=== PATIENT | female | born 1980 | race Caucasian/White ===

== ENCOUNTER 2020-06-21 10:30 | Inpatient (IN) | payer OTHER ==
--- OUTSIDE RECORDS SUMMARY | 2020-06-21 10:34 | XMS REPORT | Continuity of Care Document ---
:1980 Author Organization [facility] t Address [address] [place] [id number] Care Team Providers Name Role Phone Mujeeb Attending Clinician Mucorneliuseb Admitting Clinician Problems Condition Condition Condition Status Onset Resolution Last Treating Co mments Source Name Details Category Date Date Treatment Clinician Date HEROIN OD Diagnosis Active 2018-032019-01-01 Memoria 0-22 18:57:00 l HEROIN 00:00: [place] OD 00 Active 9 [place] HEROIN Diagnosis Active 2018-032019-01-17 Mem oria OVERDOSE, 0-22 21:47:00 l FALLS, HEROIN 00:00: [place] RIGHT HIP OVERDOSE, 00 PAINS FALLS, RIGHT HIP PAINS Active 01/01/2019 [place] UNSPECIFIE Diagnosis Active 2019-01-17 Memoria D FALL, 21:47:00 l INITIAL [place] ENCOUNTER UNSPECIFIE D FALL, INITIAL ENCOUNTER Active [place] PAIN IN Diagnosis Active 2019-01-17 Me moria RIGHT HIP 21:47:00 l PAIN IN Kashif RIGHT HIP Active [facility] Illness, Problem 2019-01-07 Mem oria unspecifie 21:32:54 l d Illness, Priyank n unspecifie d 01/07/2019 [place] Simple Problem Active 2019-01-07 Memor ia obesity 21:32:54 l (disorder) Simple Herm vesna obesity (disorder) Active Problem 01/07/2019 [place] ILLNESS, Diagnosis Active 2019-01-01 M emoria UNSPECIFIE 18:57:00 l D ILLNESS, Priyank n UNSPECIFIE D Active [facility] POISONING Diagnosis Active 2019-01-17 Memoria BY HEROIN, 21:47:00 l ACCIDENTAL Priyank n (UNINTEN POISONING BY HEROIN, ACCIDENTAL (UNINTEN Active [facility] Allergies, Adverse Reactions, Alerts This patient has no known allergies or adverse reactions. Social History Social Habit Start Date Stop Date Quantity Comments Source Social History 2019-01-02 2019-01-02 [facility] Marcie funes 05:20:48 05:20:48 Medications Ordered Filled Start Stop Current Ordering Indication Dosage Frequency Signature Comments Components Source Medication Medication Date Date Medication? Clinician (SIG) Name Name gabapentin 2018-03 Yes 300 mg = 1 M emoria 300 MG Oral 0-26 cap, PO, l Capsule 15:36: Bedtime, # Herm vesna 00 7 cap, 0 Refill(s), Pharmacy: [id number] magnesium 2018-03 Yes 400 mg = 1 Me moria oxide 400 0-26 tab, PO, l mg oral 15:36: BID, X 7 Priyank n tablet 00 day, # 14 tab, 0 Refill(s), Pharmacy: [facility] #[id number] Calcium 2018-03 Yes 1,000 mg = Yadiel lui Carbonate 0-26 2 tab, PO, l 500 MG 15:36: TID, # 42 Priyank n Chewable 00 tab, 0 Tablet Refill(s), Pharmacy: [facility] #[id number] potassium 2018-03 Yes 1 pkt, PO, Me moria phosphate-s 0-26 Daily, # 7 l odium 15:36: pkt, 0 [place] phosphate 00 Refill(s), 250 mg-280 Pharmacy: mg-160 mg [facility] oral powder #6767 for reconstitut ion cefdinir 2018-03 Yes 300 mg = 1 Mem oria 300 MG Oral 0-26 cap, PO, l Capsule 15:36: Q12H, X 4 Deanna nn [Omnicef] 00 day, # 8 cap, 0 Refill(s), Pharmacy: [facility] #[id number] gabapentin 2018-03 No Notes: Memor ia 0-26 (Same as: l 02:00: Neurontin) [place] 00 potassium 2018-03 No Notes: Memori a phosphate-s 0-25 (Same as: l odium 14:00: Phos-NaK) Kashif phosphate 00 Each 1.5 250 mg-280 gm pkt has mg-160 mg 250mg oral powder phosphorou for s. Mix reconstitut w/2.5oz ion water and stir. Magnesium 2018- No Notes: Memori a Oxide 0-24 (Same as: l 22:00: Mag-Ox Kashif 00 400) Magnesium oxide 232dm=878n g elemental magnesium Dose=____m g magnesium oxide (___mg elemental magnesium) Magnesium 2018-03 No 400 mg, Memor ia Oxide 0-24 Route: PO, l 18:00: Drug form: [place] TAB, TID, Dosing Weight 78.1, kg, Start date: 01/03/19 13:00:00 CDT, Duration: 30 day, Stop date: 02/02/19 9:00:00 [employer] Monobasic 2018-03 No 1 tab, Memori a potassium 024 Route: PO, l phosphate 18:00: Dosing Priyank n 155 MG / 00 Weight Sodium 78.1, kg, Phosphate, TID, Start Monobasic date: 350 MG Oral 01/03/19 Tablet 13:00:00 CDT, Duration: 30 day, Stop date: 02/02/19 9:00:00 [employer] Tums 2018-03 No Notes: Memoria 0-24 (Same As: l 18:00: Tums) Calcium Carbonate 500 mg = 200 mg elemental calcium Dose = mg calcium carbonate ( mg elemental calcium) Tramadol 2018-03 No Notes: Not Mem oria 0-24 to exceed l 02:44: 400mg/day. Kashif 00 (Same As: Ultram) cefepime 2018-03 No Notes: Memoria 0-23 (Same As: l 21:00: Maxipime) MEDICATION WASTE Product Size: 1000 mg Product Wasted: ___ mg Vancomycin 2019 No 1 ea, Memori a 0-23 Route: l 21:00: MISC, Kashif 00 ONCALL, Dosing Weight 78.1, kg, Start date: 01/02/19 16:00:00 CDT, Duration: 7 day, Stop date: 01/09/19 15:59:00 CDT, Pharmacy to dose, ABX Indication : Skin/Soft Tissue Infection Rocephin + 2018-03 No Notes: Memor ia sterile 0-23 (Same As: l water 10 mL 21:00: Rocephin). Use with 100 mL NS and infuse over 30 min MEDICATION WASTE Product Size: 1000 mg Product Wasted: ___ mg vancomycin 2018-03 No 2001 mg: Me moria 0-23 infuse l 21:00: over 2.5 Kashif 00 hours BD Normal 2018-03 No Notes: Memori a Saline 0-23 Same as: l Flush 20:41: BD [place] 00 Posiflush Sterile Sodium 2018-03 No 250 mL, Memoria Chloride 0-23 Route: l 0.9% IV 20:41: IVPB, Start date: 01/02/19 15:41:00 CDT, Duration: 30 day, Stop date: 02/01/19 14:40:00 [employer], PRN Line Flush, 0 Ondansetron 2018-03 No Notes: Yadiel lui 0-23 (Same as: l 20:38: Zofran) MEDICATION WASTE Product Size: 4 mg Product Wasted: ___ mg Bisacodyl 2018-03 No Notes: Memori a 0-23 (Same As: l 20:38: Dulcolax, Kashif 00 Bisco-Lax) Tylenol 2018-03 No Notes: Do Memor ia 0-23 not exceed l 17:00: 4 gm/day. [place] 00 (Same as: Tylenol) Omnipaque 2018-03 No Notes: Memori a 300 0-23 (Same l injectable 16:35: as:Omnipaq H ermann solution ue 300). WASTE: F/P - Black; E - Municipal Trash Bin Lexapro 2018-03 No Notes: Memoria 0-23 (Same as: l 14:00: Lexapro) [place] Lasix 2018-03 No Notes: Memoria 0-23 (Same as: l 13:49: Lasix) NS 1,000 mL 2018-03 No 1,000 mL, M emoria 0-23 Rate: 150 l 06:08: ml/hr, Infuse over: 6.7 hr, Route: IV, Dosing Weight 78.1 kg, Total Volume: 1,000, Start date: 01/02/19 1:08:00 CDT, Duration: 30 day, Stop date: 02/01/19 2:07:00 [employer], 1.86, m2, 0 Tylenol 2018-03 No Notes: Max Yadiel lui 0-23 acetaminop l 05:00: hen 4000 [place] 00 mg/day (4 gm/day). (Same as: Tylenol Extra Strength) gabapentin 2018-03 No Notes: Memor ia 0-23 (Same as: l 04:42: Neurontin) Kashif 00 Enoxaparin 2018-03 No Notes: Memor ia 0-23 (Same as: l 03:00: Lovenox) [place] Saline 2018-03 No Notes: Memoria Flush 0.9% 0-23 Same as: l 02:00: BD [place] Posiflush Sterile BD Normal 2018-03 No Notes: Memori a Saline 0-23 Same as: l Flush 01:58: BD Kashif 00 Posiflush Sterile Sodium 2018-03 No 250 mL, Memoria Chloride 0-23 Route: l 0.9% IV 01:58: IVPB, Kashif 00 Start date: 01/01/19 20:58:00 CDT, Duration: 30 day, Stop date: 01/31/19 19:57:00 [employer], PRN Line Flush, 0 Escitalopra 2018-03 Yes 5 mg = 1 Me moria m 5 MG Oral 0-23 tab, PO, l Tablet 01:29: BID, # 30 Priyank n [Lexapro] 00 tab, 0 Refill(s) tramadol 2018-03 No 50 mg = 1 Yadiel lui hydrochlori 0-23 tab, PO, l de 50 MG 01:29: Q6H, PRN Deanna nn Oral Tablet 00 Pain, # 40 tab, 0 Refill(s) Alprazolam 2018-03 No 0.5 mg = 1 M emoria 0.5 MG Oral 0-23 tab, PO, l Tablet 01:29: Q8H, PRN Kashif [Xanax] 00 Anxiety, # 30 tab, 0 Refill(s) Acetaminoph 2018-03 No Notes: Do M emoria en 0-23 not exceed l 00:40: 4 gm/day. [place] 00 (Same as: Tylenol) Saline 2018-03 No Notes: Memoria Flush 0.9% 0-23 Same as: l 00:40: BD [place] 00 Posiflush Sterile Potassium 2018-03 No Notes: Memori a Chloride 0-23 (Same as: l 00:40: KCL) [place] 00 Infuse no faster than 10 mEq/hr if given peripheral ly. sodium 2018-03 No Notes: Memoria phosphate 0-23 Infuse l 00:40: over 4 [place] 00 hour. Do not infuse phosphorou s concurrent ly in the same line as TPN or IVF that contains calcium. For double lumen central lines, phosphorou s may be infused in a separate lumen from TPN. potassium 2018-03 No Notes: Memori a phosphate 0-23 (Same as: l 00:40: K Kashif 00 Phosphate. ) Do not infuse phosphorou s concurrent ly in the same line as TPN or IVF that contains calcium. For double lumen central lines, phosphorou s may be infused in a separate lumen from TPN. 1 mMol phoshate has 1.47 mEq potassium Infuse over 4 hours potassium 2018-03 No Notes: Memori a phosphate-s 0-23 (Same as: l odium 00:40: Phos-NaK) Kashif phosphate 00 Each 1.5 250 mg-280 gm pkt has mg-160 mg 250mg oral powder phosphorou for s. Mix reconstitut w/2.5oz ion water and stir. Magnesium 2018-03 No Notes: Memori a Sulfate 0-23 WASTE: F/P l 00:40: - Sink; E Kashif 00 - Municipal Trash Bin Magnesium 2018-03 No Notes: Memori a Oxide 0-23 (Same as: l 00:40: Mag-Ox [place] 00 400) Magnesium oxide 164wh=132o g elemental magnesium Dose=____m g magnesium oxide (___mg elemental magnesium) Calcium 2018-03 No Notes: Memoria Gluconate 0-23 WASTE: F/P l 00:40: - Sink; E [place] 00 - Municipal Trash Bin Calcium 2018-03 No Notes: Memoria Carbonate 0-23 (Same As: l 500 MG 00:40: Tums) [place] Chewable 00 Calcium Tablet Carbonate 500 mg = 200 mg elemental calcium Dose = mg calcium carbonate ( mg elemental calcium) Vital Signs Vital Name Observation Time Observation Value Comments Source Temperature Oral (F) 2019-01-05 13:10:00 98.2 F [facility] [place] Heart Rate 2019-01-05 13:10:00 [facility] [place] Respitory Rate 2019-01-05 13:10:00 Memori al [place] Systolic (mm Hg) 2019-01-05 13:10:00 Yadiel rial [place] Diastolic (mm Hg) 2019-01-05 13:10:00 Mem orial Kashif Temperature Oral (F) 2019-01-05 09:00:00 98.5 F [facility] Heart Rate 2019-01-05 09:00:00 [facility] Respitory Rate 2019-01-05 09:00:00 Memori al [place] Systolic (mm Hg) 2019-01-05 09:00:00 Yadiel rial Kash[place] Diastolic (mm Hg) 2019-01-05 09:00:00 Mem orial [place] Temperature Oral (F) 2019-01-05 01:21:00 98.7 F [facility] Heart Rate 2019-01-05 01:21:00 [facility] [place] Respitory Rate 2019-01-05 01:21:00 Memori al [place] Systolic (mm Hg) 2019-01-05 01:21:00 Yadiel rial [place] Diastolic (mm Hg) 2019-01-05 01:21:00 Mem orial [place] Height 2019-01-02 10:00:00 154.94 cm [facility] Height 2019-01-02 01:44:00 154.94 cm [facility] Weight 2019-01-02 01:44:00 [facility] BMI Calculated 2019-01-02 01:44:00 Memori al Kash[place] Procedures This patient has no known procedures. Encounters Start End Encounter Admission Attending Care Care Encounter Source Date/Time Date/Time Type Type Clinicians Facility Department ID 2019-01-01 Inpatient [facility] [id number] 18:57:00 2019-01-01 2019-01-05 Outpatient Mujeeb, [facility] [id number] 18:57:00 13:41:00 Mehrukh 95 Results Test Description Test Time Test Comments Results Result Comments Source CARDIAC ENZYMES 2019-01-05 [id number] [facility] 10:56:00 CARDIAC ENZYMES 2019-01-04 [id number] [facility] [place] 10:17:00 CHEM PANEL 2019-01-04 0.88 [facility] Deanna nn 10:17:00 ELECTROLYTES 2019-01-04 10.6 [facility] Her braga 10:17:00 ELECTROLYTES 2019-01-04 87 [facility] Her br[place] 10:17:00 ELECTROLYTES 2019-01-04 5 [facility] Her braga 10:17:00 ELECTROLYTES 2019-01-04 0.40 [facility] Her braga 10:17:00 ELECTROLYTES 2019-01-04 138 [facility] Her br[place] 10:17:00 ELECTROLYTES 2019-01-04 3.6 [facility] Her [place] 10:17:00 ELECTROLYTES 2019-01-04 106 [facility] Her br[place] 10:17:00 ELECTROLYTES 2019-01-04 25 [facility] Her braga 10:17:00 ELECTROLYTES 2019-01-04 8.7 [facility] Her braga 10:17:00 ELECTROLYTES 2019-01-04 134 [facility] Her braga 10:17:00 HEMATOLOGY 2019-01-04 58.6 [facility] Deanna nn 10:17:00 HEMATOLOGY 2019-01-04 33.7 [facility] Deanna nn 10:17:00 HEMATOLOGY 2019-01-04 6.1 [facility] Deanna nn 10:17:00 HEMATOLOGY 2019-01-04 1.3 [facility] nn 10:17:00 HEMATOLOGY 2019-01-04 0.3 [facility] Deanna nn 10:17:00 HEMATOLOGY 2019-01-04 4.7 [facility] Deanna nn 10:17:00 HEMATOLOGY 2019-01-04 2.7 [facility] nn 10:17:00 HEMATOLOGY 2019-01-04 0.5 [facility] Deanna nn 10:17:00 HEMATOLOGY 2019-01-04 0.1 [facility] [place] nn 10:17:00 HEMATOLOGY 2019-01-04 8.0 [facility] Deanna nn 10:17:00 HEMATOLOGY 2019-01-04 4.17 [facility] Deanna nn 10:17:00 HEMATOLOGY 2019-01-04 12.7 [facility]anna nn 10:17:00 HEMATOLOGY 2019-01-04 37.3 [facility] Deanna nn 10:17:00 HEMATOLOGY 2019-01-04 89.3 [facility] Deanna nn 10:17:00 HEMATOLOGY 2019-01-04 10:17:00 Test Item Value Reference Range Interpretation Comme nts MCH (test code = MCH) 30.4 pg 27.0-31.0 [facility] HusrrdhBZRDJNINQS1250-99-42 10:17:0034.0[facility] HermannHEMATOLOGY 2019-01-04 10:17:0012.8[facility] ChyoeklNBMAAJLWJT0453-72-30 10:17:61116Mskaorzh PzkzuwaWRPALIPKMF1665-21-65 10:17:008.7[facility] AqwntnlHJJSGSSPWK5907-78-61 10:17:00Negative *NA*(01/04/19 5:17 AM)[facility] BujhtetLDLVSPCCUG7352-56-68 10:17:00Negative *NA*(01/04/19 5:17 AM)[facility] CisrjarXIXDJXOESM1970-33-97 10:17:00Negative *NA*(01/04/19 5:17 AM)[facility] OacsimpDYJXEMUDTN9919-00-59 10:17:00Negative *NA*(01/04/19 5:17 AM)[facility] HermannCHEM QKESR9295-81-50 10:05:002.2[facility] LcnqkbyKJQMAXLGEO0550-66-74 10:05:009.7[facility] [place] SDSXBAKRIW9264-81-14 10:05:003.93[facility] AukiwrkPFDMFRHEGW6579-69-11 10:05:00 12.1[facility] EvuerbqFJHFLKMGWV9000-93-85 10:05:0035.4[facility] HermannHEMATOLOGY 2019-01-03 10:05:0090.2[facility] TygsaxkVUJUCSCGYV9981-47-31 10:05:00 Test Item Value Reference Range Interpretation Comments MCH (test code = MCH) 30.9 pg 27.0-31.0 [facility] WwkodqtWYFPZNXFRD9311-89-42 10:05:0034.2[facility] HermannHEMATOLOGY 2019-01-03 10:05:0013.3[facility] PlrubreOQVSVONLJQ2995-75-72 10:05:97980Pnmashaf HxqpimnTFANHZRQJK3978-98-59 10:05:008.3[facility] ZtahgygGLAMVPGBHK5531-57-02 10:05:0068.5[facility] JyhfcmtKDVICHYCMK1931-56-29 10:05:0025.0[facility] [place] SJLSCFBEEP5019-97-57 10:05:005.6[facility] XxdrivxCVHTXSMDQN3075-89-02 10:05:000.6 [facility] FaziryhCZEHDPVDDB8236-78-88 10:05:000.3[facility] HermannHEMATOLOGY 2019-01-03 10:05:006.7[facility] CprbnmtINLAGCMUDV5904-39-94 10:05:002.4[facility] SeggmorFIDZHGFSNK8868-01-70 10:05:000.5[facility] FtrzuaiYCNMWRLSUG8199-43-25 10:05:000.1[facility] HermannPARATHYROID DWKOUDU7840-59-56 10:05:001.00[facility] HermannPARATHYROID IGBNQKD8651-30-94 10:05:001.04[facility] HermannCARDIAC ENZYMES 2019-01-03 10:05:645434Gnnwbvnr HermannCHEM JUCMH2318-24-60 10:05:001.7[facility] HermannCHEM ZLNMM8496-56-71 10:05:0092[facility] HermannCHEM ZHWHR6187-54-12 10:05:005[facility] HermannCHEM EZTUN1584-05-80 10:05:000.40[facility] HermannCHEM WQMHZ3182-40-63 10:05:56402Gfdazuei HermannCHEM DAPJJ8484-12-47 10:05:003.8 [facility] HermannCHEM VZCHH1122-36-51 10:05:68008Isdbzgsb HermannCHEM PANEL 2019-01-03 10:05:0024[facility] HermannCHEM LJUEV8230-38-80 10:05:008.0[facility] HermannCHEM IDBVO2422-03-26 10:05:005.7[facility] HermannCHEM ZDHMB6497-89-07 10:05:002.6[facility] HermannCHEM SWGTP4868-03-48 10:05:82951Hzmcsasa HermannCHEM NHKGC7271-26-44 10:05:47003Zzqaektp HermannCHEM MXHHO6121-74-39 10:05:0044 [facility] HermannCHEM FZWJK4565-90-83 10:05:000.3[facility] HermannCHEM PANEL 2019-01-03 10:05:61195Owflxgar HermannCHEM WLUCU9267-50-60 10:05:009.8[facility] HermannCHEM IEHJP0528-97-22 10:05:00 Test Item Value Reference Range Interpretation Comments B/C Ratio (test code = B/C Ratio) 12 09-04 [facility] HermannCHEM RVBUT6968-23-82 10:05:003.1[facility] HermannCHEM PANEL 2019-01-03 10:05:00 Test Item Value Reference Range Interpretation Comments A/G Ratio (test code = A/G Ratio) 0.8 1 0.7-1.6 [facility] HermannCARDIAC UHDQMPH9755-24-03 08:02:000.12[facility] HermannCHEM PANEL 2019-01-02 08:02:0098[facility] HermannCHEM GINJM6204-42-61 08:02:0015[facility] HermannCHEM HUTBS0891-74-96 08:02:000.60[facility] HermannCHEM XPFMZ0115-22-14 08:02:44062Lgvkygbv HermannCHEM KXIPA9547-10-91 08:02:004.2[facility] HermannCHEM DCNNL2611-58-59 08:02:49708Ipfviqsj HermannCHEM VGRYS3617-69-79 08:02:0026 [facility] HermannCHEM NXYCN1597-45-94 08:02:008.2[facility] HermannCHEM PANEL 2019-01-02 08:02:007.9[facility] HermannCHEM STWNJ1252-60-60 08:02:77215Dnauksqe HermannCHEM JAXZB3393-70-30 08:02:002.9[facility] HermannCHEM NFPTX2360-03-47 08:02:002.1[facility] HermannCHEM GRAZV0464-76-05 08:02:001.3[facility] WQTCYKEHGVVMQ4256-86-83 08:02:00Negative *NA*(01/02/19 3:02 AM)[facility] GVFPTLJFYH9029-34-13 08:02:0013.4[facility] BnkxkulACITVSNRMY0593-74-11 08:02:00 4.07[facility] LadbrhlKCTCMMUCHU5706-85-36 08:02:0012.2[facility] HermannHEMATOLOGY 2019-01-02 08:02:0036.5[facility] OfgdcerCNYVGXELKN8137-98-05 08:02:0089.8[facility] CpipjbxLPUZQNLFOC4044-12-69 08:02:00 Test Item Value Reference Range Interpretation Comments MCH (test code = MCH) 30.1 pg 27.0-31.0 [facility] UcvtzvpWHJLOWQEJM4724-06-40 08:02:0033.5[facility] HermannHEMATOLOGY 2019-01-02 08:02:0013.5[facility] NsawnihPMJYRWUFOP6821-20-92 08:02:10407Vhqrjppg TvwovvuBTJMPHIFSO7757-15-29 08:02:008.9[facility] IlvdlhtYXCCKMGTOL9470-46-71 08:02:0077.9[facility] FijyiyhVJPDRMNUAH7021-73-04 08:02:0016.3[facility] [place] ZODZSFGPQZ2212-20-52 08:02:005.4[facility] VlrtyjmVVZKOIVHSQ0875-25-66 08:02:000.2 [facility] BqxmrtgUIWTANKHYR3019-38-03 08:02:000.2[facility] HermannHEMATOLOGY 2019-01-02 08:02:0010.4[facility] DgftquiHCUAESNMTH0036-29-52 08:02:002.2[facility] WpvhmxaASIEVBNCMA5460-81-30 08:02:000.7[facility] ExjgvsxOKLDCWKLDP8504-78-25 08:02:000.0[facility] XlzlrepUETANXHQWB0626-51-64 08:02:000.0[facility] PARATHYROID ECWMCCD0332-78-23 08:02:001.06[facility] HermannPARATHYROID PROFILE 2019-01-02 08:02:001.03[facility] HermannBACTERIAL - IYCBGPMF1340-15-04 01:51:00 Negative (01/01/19 8:51 PM)[facility] HermannCARDIAC RWZEGJC0756-33-66 01:51:00 0.12[facility] HermannCARDIAC YTHMLKO1641-40-47 01:51:95855.9[facility] [place] CARDIAC MRDTLNK5407-95-91 01:51:00 Test Item Value Reference Range Interpretation Comments CK MB Index (test 3.1 1 See_Comment [Automate d message] The code = CK MB Index) system w [facility] generated this result transmit juliette reference range : <=2.5. The reference range was not used to interpr et this result as umm l/abnormal. [facility] ZNVHE6899-08-40 01:51:00 Test Item Value Reference Range Interpretation Comments B/C Ratio (test code = B/C Ratio) 19 1 6-25 [facility] PVTKD6714-18-04 01:51:003.4[facility] HermannCHEM PANEL 2019-01-02 01:51:00 Test Item Value Reference Range Interpretation Comments A/G Ratio (test code = A/G Ratio) 1.0 1 0.7-1.6 [facility] [id number] 01:51:006.8[facility] HermannCHEM PANEL 2019-01-02 01:51:003.4[facility] HermannCHEM MMLBL9030-92-49 01:51:88980Smhvfqhf HermannCHEM NKQWM4639-94-27 01:51:70738Okpmbqvi HermannCHEM DGWYG7870-40-47 01:51:0052[facility] HermannCHEM LPWKG8159-44-36 01:51:000.3[facility] HermannCHEM DOZQR6754-07-69 01:51:003.3[facility] HermannCHEM JFMOR2893-09-53 01:51:002.3 [facility] HermannCHEM MJRNR1847-66-11 01:51:002.1[facility] HermannCHEM PANEL 2019-01-02 01:51:003.97[facility] JesnkkeZETWVLSYVG9479-83-44 01:51:00 Test Item Value Reference Range Interpretation Comments PTT (test code = PTT) 34.2 s 22.9-35.8 [facility] CenterChioxbqVZNPUVELCD4548-64-73 01:51:00 Test Item Value Reference Range Interpretation Comments PT (test code = PT) 15.3 s 12.0-14.7 [facility] CenterBupnlemLFQDVCYJND2328-64-28 01:51:00 Test Item Value Reference Range Interpretation Comments INR (test code = INR) 1.23 1 0.85-1.17 [facility]vbVKEVGTQFAL7629-85-94 01:51:000.0[facility] HermannPARATHYROID WVZTQMZ7246-16-70 01:51:001.02[facility] HermannPARATHYROID ZSOXSFM6663-55-89 01:51:000.96[facility] HermannSPECIAL ILTFGEDBC0635-88-13 01:51:004.8[facility] [place]
[2020-06-21 10:44] LABS: Basophils % 0.3 % (0-1.3); Hematocrit 37.3 % (36.0-45.0); Lymphocytes % 30.2 % (15.3-44.8); MPV 8.5 fL (7.6-11.3); RBC Red Blood Cell Count 4.38 M/uL (3.86-4.86)
[2020-06-21] MEDS ORDERED: LORazepam 2 MG/ML VIAL ONE (10:55)
[2020-06-21] MEDS ORDERED: NA CHLORIDE 0.9% 2,000 ML ONE (10:55)
[2020-06-21] MEDS ORDERED: MIDAZOLAM HCL 2 MG/2 ML INJ ONE (11:08)
[2020-06-21 11:11] LABS: BUN Blood Urea Nitrogen 11 mg/dL (7-18); Bicarbonate 22 mmol/L (21-32); Creatine Phosphokinase 75 U/L (26-192); Glucose Level 137 mg/dL (74-106); Sodium Level 136 mmol/L (136-145)
[2020-06-21 11:23] LABS: Potassium 3.9 mmol/L (3.5-5.1)
[2020-06-21 13:09] LABS: Urine Blood Trace-intact (Negative); Urine Glucose Negative (Negative); Urine Protein Negative (Negative); Urine Specific Gravity >=1.030 (1.005-1.030); Urine pH 5.5 (5.0-7.0)
[2020-06-21 13:12] LABS: Urine Specific Gravity/Preg 1.025 (1.005-1.030)
[2020-06-21 13:37] LABS: Barbiturates NEGATIVE (NEGATIVE); Benzodiazepines POSITIVE (NEGATIVE); Cocaine NEGATIVE (NEGATIVE); METHAMPHETAM POSITIVE (NEGATIVE); Methadone POSITIVE (NEGATIVE); Opiates NEGATIVE (NEGATIVE); Phencyclidine NEGATIVE (NEGATIVE); THC Cannibis NEGATIVE (NEGATIVE)
[2020-06-21 13:41] LABS: Urine Bacteria 20-50 /HPF (<20); Urine Mucus 1+ /HPF (NONE SEEN); Urine RBC <5 /HPF (NONE SEEN); Urine Yeast PRESENT (NONE SEEN)
[2020-06-21] MEDS ORDERED: CEFTRIAXONE/SWI 1gm 1 GM/10 ML SYR ONE (14:30)
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
--- NOTE | 2020-06-21 16:42 | EDPHYS ---
Physician Documentation [facility] [place] Name: Sandra Gideon Age: 39 yrs Sex: Female : 1980 Arrival Date: 06/21/2020 Time: 10:31 Bed 6 Private MD: ED Physician Caesar Nicole HPI: 06/21 10:33 This 39 yrs old Female presents to ER via Unassigned with complaints of Drug rn Abuse. 10:33 The patient presents to the emergency department after a known overdose, that was rn intentional. Context: Method: the patient has a confirmed or suspected ingestion, Time: 1 hour(s) ago, the OD/poisoning occurred at outdoors, and was witnessed by police. Associated signs and symptoms: Pertinent positives: palpitations, visual hallucinations, Pertinent negatives: loss of consciousness, shortness of breath. Severity of symptoms: At their worst the symptoms were moderate in the emergency department the symptoms are unchanged. It is unknown whether or not the patient has had similar symptoms in the past. The patient has not recently seen a physician. EMS reports ingestion of uncleat amount of meth [place] Patient with tachycardia and hallucinations. Given activated charcoal by EMS. Now approx 1 hour post ingestion. Patient not being cooperative with exam, rambling about the devil and God, and is handcuffed and in custody. . Historical: - Allergies: 10:35 Unable to obtain; sv - PMHx: 10:35 Unable to obtain; sv - PSHx: 10:35 Unable to obtain; sv - Immunization history:: Adult Immunizations unknown. - Family history:: not pertinent. - Social history:: Smoking status: unknown. - Hospitalizations: : No recent hospitalization is reported. ROS: 10:33 Unable to obtain ROS due to patient being uncooperative. rn Exam: 10:33 Constitutional: Disheveled female, agitated Head/Face: Normocephalic, atraumatic. rn Eyes: Pupils dilated, no nystagmus ENT: dry MM Cardiovascular: Tachycardic Respiratory: Tachypnea without retractions. Speaking full sentences. Abdomen/GI: soft, non-tender Pelvic Exam: Normal external genitalia. Pt with another clear bag of white substance and pipe in underwear/vagina. Bag intact. Skin: Warm, dry MS/ Extremity: Pulses equal, no cyanosis. Neuro: Awake, alert, uncooperative, moving all 4 extremities spontaneously. Vital Signs: 10:44 BP 164 / 111; Pulse 138; Resp 24; Temp 97.2(TE); Pulse Ox 99% on R/A; Pain 0/10; ss 11:18 Pulse 129; ss 11:27 BP 125 / 80; Pulse 129; Resp 21; Pulse Ox 98% on R/A; ss 12:03 BP 108 / 82; Pulse 126; Resp 17; Pulse Ox 100% on R/A; Pain 0/10; ss 12:11 Pulse 122; ss 13:09 Pulse 123; Resp 23; Pulse Ox 95% ; ss 13:38 Pulse 116; Resp 24; Pulse Ox 97% on R/A; ss 14:39 BP 147 / 91; Pulse 116; ss 15:01 Pulse 112; Resp 22; Pulse Ox 97% on R/A; Pain 0/10; ss 15:26 Pulse 110; Pulse Ox 95% ; ss 16:07 BP 138 / 89; Pulse 106; Resp 22; Pulse Ox 98% on R/A; ss 17:00 BP 122 / 88; Pulse 105; Resp 14; Pulse Ox 97% on R/A; hb 17:50 BP 109 / 83; Pulse 103; Resp 17; Pulse Ox 99% on R/A; hb 18:26 BP 129 / 77; Pulse 102; Resp 15; Pulse Ox 97% on R/A; hb 19:42 BP 148 / 76; Pulse 100; Resp 18; Pulse Ox 98% on R/A; wh MDM: 10:31 Patient medically screened. rn 16:37 Differential diagnosis: Ingestion/exposure to meth. Data reviewed: vital signs, nurses rn notes, lab test result(s), EKG, and as a result, I will admit patient. Counseling: I had a detailed discussion with the patient and/or guardian regarding: the historical points, exam findings, and any diagnostic results supporting the discharge/admit diagnosis, lab results, the need for further work-up and treatment in the hospital. Response to treatment: the patient's symptoms have mildly improved after treatment, and as a result, I will admit patient. Admission orders: after a detailed discussion of the patient's condition and case, the admit orders are written by me. ED course: Pt still altered, tachycardic, hallucinating after 6 hours of observation, will have to admit to hospital for further care and hydration to allow to sober up. Updated cloth neutralizer. Are going to cut warrants for her. Admitted to Dr. Lucas.. 06/21 10:32 Order name: CBC with Diff; Complete Time: 11:01 06/21 10:32 Order name: Basic Metabolic Panel; Complete Time: 11:52 rn 06/21 10:32 Order name: Urine Drug Screen; Complete Time: 13:52 rn 06/21 10:32 Order name: Urine Microscopic Only; Complete Time: 13:52 rn 06/21 10:32 Order name: CK; Complete Time: 11:52 06/21 13:08 Order name: Urine Dipstick-Ancillary; Complete Time: 13:25 EDOH 06/21 13:09 Order name: Urine --Ancillary (enter results); Complete Time: 13:25 06/21 13:42 Order name: Urine Culture [facility] 06/21 16:45 Order name: COVID-19 : Document "Date of Symptom Onset" if Symptomatic. sv 06/21 17:38 Order name: Troponin I [facility] 06/21 17:38 Order name: Troponin I [facility] 06/21 18:34 Order name: SARS-COV-2 RT PCR [facility] 06/21 10:32 Order name: IV Start; Complete Time: 11:33 06/21 10:32 Order name: Urine Test (obtain specimen); Complete Time: 13:04 06/21 10:32 Order name: Urine Dipstick-Ancillary (obtain specimen); Complete Time: 13:04 06/21 10:33 Order name: EKG; Complete Time: 10:33 rn 06/21 10:33 Order name: EKG - Nurse/Tech; Complete Time: 11:18 06/21 17:38 Order name: Regular EDMS Administered Medications: 10:35 Drug: NS 0.9% 1000 ml Route: IV; Rate: 1000 ml; Site: right forearm; ss 18:27 Follow up: IV Status: Completed infusion; IV Intake: 1000ml hb 10:35 Drug: Ativan 2 mg Route: IVP; Site: right forearm; ss 11:18 Follow up: Response: No adverse reaction ss 10:36 Drug: NS 0.9% 1000 ml Route: IV; Rate: 1000 ml; Site: right forearm; ss 11:35 Follow up: IV Status: Completed infusion; IV Intake: 1000ml hb 10:50 Drug: Versed 2 mg Route: IVP; Site: right forearm; ss 11:17 Follow up: Response: No adverse reaction; No adverse reaction, pt apperas more calm. Is ss drowsy 14:16 Drug: Rocephin (cefTRIAXone) 1 grams Route: IV; Rate: calculated rate; Site: right ss forearm; 14:17 Follow up: IV Status: Completed infusion; IV Intake: 10ml hb 15:17 Follow up: Response: No adverse reaction hb Disposition: 06/21/20 16:41 Hospitalization ordered by Liudmila Lucas for Observation. Preliminary diagnosis are Adverse effect of amphetamines, Altered mental status, unspecified, Urinary tract infection, site not specified. - Bed requested for Telemetry/MedSurg (observation). - Status is Observation. wh - Condition is Stable. - Problem is new. - Symptoms have improved. Signatures: Dispatcher [employer] EDOH Leanne Davis RN RN Caesar Nicole MD MD rn Smirch, Shelby, RN RN Janine Osborne RN RN Margret Ramos RN Corrections: (The following items were deleted from the chart) 11:20 10:33 Constitutional: Disheveled female, agitated Head/Face: Normocephalic, atraumatic. rn Eyes: Pupils dilated, no nystagmus ENT: dry MM Cardiovascular: Tachycardic Respiratory: Tachypnea without retractions. Speaking full sentences. Abdomen/GI: soft, non-tender Skin: Warm, dry MS/ Extremity: Pulses equal, no cyanosis. Neuro: Awake, alert, uncooperative, moving all 4 extremities spontaneously. rn 17:31 16:46 CORONAVIRUS ordered. EDOH EDMS 18:56 16:41 Hospitalization Ordered by Liudmila Lucas MD for Observation. Preliminary sv diagnosis is Adverse effect of amphetamines; Altered mental status, unspecified; Urinary tract infection, site not specified. Bed requested for Telemetry/MedSurg (observation). Status is Observation. Condition is Stable. Problem is new. Symptoms have improved. rn 19:43 18:56 06/21/2020 16:41 Hospitalization Ordered by Liudmila Lucas MD for Observation. Preliminary diagnosis is Adverse effect of amphetamines; Altered mental status, unspecified; Urinary tract infection, site not specified. Bed requested for Telemetry/MedSurg (observation). Status is Observation. Condition is Stable. Problem is new. Symptoms have improved. sv
[2020-06-21] MEDS ORDERED: ACETAMINOPHEN 500 MG TAB PO PRN (17:35)
[2020-06-21] MEDS ORDERED: ONDANSETRON 4 MG/2 ML VIAL IV PRN (17:35)
[2020-06-21] MEDS ORDERED: MORPHINE 4 MG/ML SYR IV PRN (17:35)
[2020-06-21] MEDS ORDERED: NA CHLORIDE 0.9% 1,000 ML IV SCH (18:00)
[2020-06-21 20:06] VITALS: O2SAT 98
[2020-06-21 21:25] VITALS: BMI 24.9
[2020-06-22 03:59] LABS: Basophils % 0.2 % (0-1.3); Hematocrit 35.3 % (36.0-45.0); Lymphocytes % 33.2 % (15.3-44.8); MPV 8.5 fL (7.6-11.3)
[2020-06-22 04:13] LABS: ALT/SGPT 26 U/L (12-78); AST/SGOT 20 U/L (15-37); Albumin 3.4 g/dL (3.4-5.0); Alkaline Phosphatase 71 U/L (45-117); BUN Blood Urea Nitrogen 4 mg/dL (7-18); Bicarbonate 26 mmol/L (21-32); Bilirubin Total 0.2 mg/dL (0.2-1.0); Glucose Level 83 mg/dL (74-106); Potassium 3.2 mmol/L (3.5-5.1); Protein, Total 7.2 g/dL (6.4-8.2); Sodium Level 138 mmol/L (136-145)
[2020-06-22] MEDS ORDERED: POTASSIUM CL SA 10 MEQ TAB PO ONE (05:00)
[2020-06-22 05:19] VITALS: BP 134/82; TEMP 98.6
--- NOTE | 2020-06-22 06:20 | P.HP ---
Certification for Inpatient Patient admitted to: Inpatient With expected LOS: >2 Midnights Patient will require the following post-hospital care: None Practitioner: I am a practitioner with admitting privileges, knowledge of patient current condition, hospital course, and medical plan of care. Services: Services provided to patient in accordance with Admission requirements found in Title 42 Section 412.3 of the Code of Federal Regulations Patient History Date of Service: 06/21/20 Reason for admission: Overdose/tachycardia/altered mental status History of Present Illness: Patient is a 39-year-old female came to the hospital after overdosing. She had swallowed a bag of crystal amphetamines when she was being pulled over by the linoleum layer apprentice. She apparently was arrested for 3 felony warrants. She is unresponsive and not really interacting appropriately. She is tachycardic with heart rates in the 120s. Will hydrate her and monitor on the hospital floor. Hopefully her clinical symptoms improved. Monitor her very closely over the next 48-72 hr. Allergies No Known Allergies Allergy (Unverified 06/21/20 22:00) - Past Medical/Surgical History Has patient received pneumonia vaccine in the past: No -: Bipolar -: Schizophrenia Past Surgical History: Patient denies surgical history - Family History Father Family History: Reviewed- Non-Contributory - Social History Smoking Status: Current every day smoker Alcohol use: Yes CD- Drugs: Yes Review of Systems is unable to be obtained Physical Examination - Vital Signs Temperature: 98.6 F Blood Pressure: 134/82 Pulse: 89 Respirations: 20 Pulse Ox (%): 98 - Physical Exam General: Confused HEENT: Atraumatic, PERRLA, Mucous membr. moist/pink, EOMI, Sclerae nonicteric Neck: Supple, 2+ carotid pulse no bruit, No LAD, Without JVD or thyroid abnormality Respiratory: Clear to auscultation bilaterally, Normal air movement Cardiovascular: Other (Tachyarrhythmia) Gastrointestinal: Normal bowel sounds, Soft and benign, Non-distended, No tenderness Musculoskeletal: No clubbing, No swelling, No tenderness Integumentary: No rashes Neurological: Normal gait, Normal speech, Normal strength at 5/5 x4 extr, Normal tone, Sensation intact, Cranial nerves 3-12 intact, Normal affect Lymphatics: No axilla or inguinal lymphadenopathy - Studies Laboratory Data (last 24 hrs) 06/21/20 10:35: Sodium 136, Potassium 3.9, BUN 11, Creatinine 0.63, Glucose 137 H 06/21/20 10:35: WBC 6.80, Hgb 12.9, Hct 37.3, Plt Count 258 Assessment & Plan - Problems (Diagnosis) (1) Overdose by amphetamine Current Visit: Yes Status: Acute (2) Tachyarrhythmia Current Visit: Yes Status: Acute (3) Altered mental status Current Visit: Yes Status: Acute - Plan Plan: 1. Continue with IV hydration 2. Continue monitoring hemodynamics closely 3. May give low-dose beta-ludwin if heart rate does not improve 4. Monitor mentation with neuro checks every 4 hr 5. Out of bed and ambulate 6. Advanced diet as tolerated when she starts waking up better 7. GI and DVT prophylaxis Discharge Plan: Home Plan to discharge in: Greater than 2 days - Advance Directives Does patient have a Living Will: No Does patient have a Durable POA for Healthcare: No - Code Status/Comfort Care Code Status Assessed: Yes Code Status: Full Code Critical Care: No Time Spent Managing PTS Care (In Minutes): 45
--- NOTE | 2020-06-22 07:16 | EKG ---
Test Date: 2020-06-21 Test Time: 11:05:48 Chief Safety Officer: BAUTISTA MEASUREMENT RESULTS: Intervals: Rate: 131 ME: 144 QRSD: 76 QT: 284 QTc: 419 [place]: P: 64 ME: 144 QRS: 94 T: 27 INTERPRETIVE STATEMENTS: Sinus tachycardia Possible Left atrial enlargement Rightward axis Nonspecific ST abnormality Abnormal ECG No previous ECG available for comparison Electronically Signed On 06-22-20 07:14:08 CDT by Rakan Sue
--- NOTE | 2020-06-22 07:27 | P.PN ---
Subjective Date of Service: 06/22/20 Primary Care Provider: Dr. Evangelista Chief Complaint: Overdose/tachycardia/altered mental status Subjective: Other (Patient stable at this time. Vital signs stable. Patient no longer with tachycardia. Patient has some suicidal ideation. Reports that she wants to . She admits having underlying schizophrenia and bipolar disorder. She reports losing her soul to demons.) Physical Examination - Vital Signs Temperature: 98.6 F Blood Pressure: 134/82 Pulse: 89 Respirations: 20 Pulse Ox (%): 98 - Studies Laboratory Data (last 24 hrs) 06/21/20 10:35: Sodium 136, Potassium 3.9, BUN 11, Creatinine 0.63, Glucose 137 H 06/21/20 10:35: WBC 6.80, Hgb 12.9, Hct 37.3, Plt Count 258 Assessment & Plan Discharge Plan: Psychiatry Plan to discharge in: 24 Hours Physician Review Additional Text: Physical exam: Patient alert, cooperative. Patient has suicidal ideation. Reports wanting to . She is under a lot of stress at home. Admits having schizophrenia and bipolar disorder. She hears voices at times. She reports that her soul has been taken by demons. She does not have an active suicide plan but wanting to . She has been to psychiatric facilities in the past. She reports medication does not help. Heart: Regular rate and rhythm Lungs: Clear to auscultation Abdomen: Soft nontender nondistended Extremities: Good range of motion. No focal deficits. Mentation: As above Impression: Overdose with methamphetamines with noted sinus tachycardia Suicidal ideation with history of schizophrenia and bipolar disorder Tachycardia related to methamphetamines COVID 19 positive, asymptomatic Urine drug screen positive for amphetamines, methadone and benzodiazepine Plan: Overdose with methamphetamines with noted sinus tachycardia: She was given IV fluids. Patient has done well. Patient no longer with sinus tachycardia. Patient medically cleared. Patient was to have been discharged but patient reported suicidal ideation. She reports of wanting to . Patient with history of schizophrenia and bipolar disorder. She hears voices at times. Patient has been to psychiatric facilities in the past. She reports medication does not help. Patient willing to speak to psychiatry. Will place on suicidal precautions. One-on-one sitter to be present. Will monitor for any changes. Patient medically cleared. Will have [facility] evaluate patient for possible inpatient versus outpatient psychiatric care. If [facility] recommends outpatient care then patient will be discharged home. If [facility] recommends inpatient care then will transfer patient to psychiatric facility to continue evaluation and tr eatment. Suicidal ideation with history of schizophrenia and bipolar disorder: Continue as above. [facility] to evaluate patient for possible inpatient versus outpatient care. Patient medically stable for discharge or transfer to inpatient facility. COVID-19 positive, asymptomatic: Patient asymptomatic. Breathing appropriately. No deficits noted. Continue with CDC guidelines on COVID-19 isolation and recommendations. Urine drug screen positive for amphetamines, methadone and benzodiazepine: Overall stable. Will monitor close closely. Time Spent Managing Pts Care (In Minutes): 55
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
== END 2020-06-22 08:14 | disposition home or self-care (01) | DRG 917 ==
LOC: ER 10:30 → ERHOLD 17:49 → 4TH 19:43
PROVIDERS: ADMIT Hospitalist; ATTEND Family Medicine
DX: T43.622A Poisoning by amphetamines, intentional self-harm, initial encounter (principal); U07.1 COVID-19; F17.200 Nicotine dependence, unspecified, uncomplicated; F20.9 Schizophrenia, unspecified; F41.9 Anxiety disorder, unspecified; F31.9 Bipolar disorder, unspecified; R00.0 Tachycardia, unspecified
CPT/HCPCS: 36415; 80048; 80053; 80307; 81003; 81015; 81025; 82550; 82947; 84484; 85025; 87086; 87088; 93005; 96361; 96374; 96375; 99285; J0696; J2250; J7030; U0003

== ENCOUNTER 2021-05-07 20:20 | Emergency (ER) | payer OTHER ==
--- OUTSIDE RECORDS SUMMARY | 2021-05-07 20:22 | XMS REPORT | Continuity of Care Document ---
:1980 Author Organization [facility] t Address [address] [place] [address] Dr. Sandra [address] [place] [id number] Care Team Providers Name Role Phone Unavailable Unavailable Unavailable Problems This patient has no known problems. Allergies, Adverse Reactions, Alerts This patient has no known allergies or adverse reactions. Medications This patient has no known medications. Procedures This patient has no known procedures. Encounters Start End Encounter Admission Attending Care Care Encounter Source Date/Time Date/Time Type Type Clinicians Facility Department ID 2019-01-01 Inpatient [id number] [facility] W 18:57:00 Results This patient has no known results.
[2021-05-07 20:49] LABS: Urine Blood 2+ (Negative); Urine Glucose Negative (Negative); Urine Protein 1+ (Negative); Urine Specific Gravity >=1.030 (1.005-1.030)
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
[2021-05-07 21:52] VITALS: BP 145/82; TEMP 97.4; O2SAT 98
--- NOTE | 2021-05-10 08:53 | EKG ---
Test Date: 2021-05-07 Test Time: 20:34:33 Drying Equipment Operator: MATILDE MEASUREMENT RESULTS: Intervals: Rate: 92 WA: 146 QRSD: 76 QT: 350 QTc: 432 [place]: P: 55 WA: 146 QRS: 83 T: 41 INTERPRETIVE STATEMENTS: Normal sinus rhythm Normal ECG Compared to ECG 06/21/2020 11:05:48 Sinus tachycardia no longer present Right-axis deviation no longer present ST (T wave) deviation no longer present Electronically Signed On 05-10-21 08:48:04 EXECUTIVE MARKETING ASSISTANT by Rakan Sue
== END 2021-05-07 21:12 | disposition left against medical advice (07) ==
LOC: ER 20:20
DX: R07.9 Chest pain, unspecified (principal); R45.851 Suicidal ideations; F32.A Depression, unspecified
CPT/HCPCS: 81003; 93005; 99284